=== PATIENT | female | born 1965 | race Caucasian/White ===

== ENCOUNTER 2016-12-12 20:05 | Emergency (ER) | payer OTHER ==
[2016-12-12] MEDS ORDERED: KETOROLAC TROMETHAMINE 60 MG/2 ML VIAL IM ONE (20:09)
[2016-12-12] MEDS ORDERED: ORPHENADRINE CITRATE 60 MG/2ML IM ONE (20:31)
[2016-12-12] MEDS ORDERED: ORPHENADRINE CITRATE 60 MG/2ML ONE (20:32)
[2016-12-12 20:45] VITALS: BP 147/89
--- NOTE | 2016-12-12 20:53 | ED Physician Documentation ---
Upper Extremity Problem - HISTORIAN Historian: patient - HPI Stated Complaint: right shoulder pain Chief Complaint: Upper Extremity Problem Location: R shoulder Onset: days ago Timing: worse Recent Injury: No Associated Symptoms: denies: fever, chills, sweating, shortness of breath, difficulty breathing, chest pain, chest discomfort, nausea, vomiting, neck pain , back pain, jaw pain, other Exacerbated By: nothing Relieved By: nothing Quality: pain, tenderness Further Comments: yes (51 year old female patient presents with complaints of right shoulder pain, states she cannot move her shouder. Reports 10 year history of right shoulder pain - treated with xray, naproxen and PT. Has never had MRI. States symptoms have become worse over past 3 days. Denies fall or injury. Cannot abduct shoulder.) - ROS CONST: no problems EYES/ENT: none CVS/RESP: none GI/: none MS/SKIN/LYMPH: joint pain (pain in all joints, started Vit D daily) - PAST HX Past History: diabetes Type 2, other (cardiac ablation, IBS, chronic right shoulder pain, meningioma) Surgeries/Procedures: cholecystectomy, hysterectomy Allergies/Adverse Reactions: Allergies Allergy/AdvReac Type Severity Reaction Status Date / Time tomato [Tomato] Allergy Verified 12/12/16 20:38 midazolam HCl [From Versed] AdvReac Pt. states Verified 12/12/16 20:38 she will wake during the middle of the procedure Home Medications: Ambulatory Orders Medication Instructions Recorded Baclofen [Liorasal] 10 mg PO TID PRN #30 tablet 12/12/16 Ketorolac Tromethamine [Toradol] 10 mg PO TID #15 tablet 12/12/16 - SOCIAL HX Smoking History: non-smoker Alcohol Use: none - FAMILY HX Family History: denies: none - VITAL SIGNS Vital Signs: Vital Signs Temp Pulse Resp BP Pulse Ox 98.2 F 109 H 18 147/89 98 12/12/16 20:08 12/12/16 20:08 12/12/16 20:08 12/12/16 20:08 12/12/16 20:08 - REVIEWED ASSESSMENTS Nursing Assessment Reviewed: Yes Vitals Reviewed: Yes Progress - Progress Progress: Patient states she does not want xray, "I have had them, it doesn't help." Patient states she has an appointment with Jes[facility]s at [facility] tomorrow. Now c/ o pain in all joints, which has improved after starting Vitamin D. Recommended patient discuss with PCP ED Results Lab/Radiology - Orders Orders: ED Orders Category Date Time Status Sling to Affected Extremity 1T Care 12/12/16 21:01 Ordered SHOULDER 2 VIEWS OR MORE [RAD] Stat Exams 12/12/16 Stop Req Ketorolac Tromethamine [Toradol] Med 12/12/16 20:09 Discontinued 60 mg IM NOW ONE Orphenadrine Citrate [Norflex] Med 12/12/16 20:32 Discontinued 60 mg .ROUTE .STK-MED ONE Orphenadrine Citrate [Norflex] Med 12/12/16 20:31 Discontinued 60 mg IM NOW ONE Upper Extremity Problem - EXAM General Appearance: mild distress Skin: normal color, warm/dry, NR, INT, PAL, DR Shoulder Exam: normal inspection, no evidence of injury, limited ROM (right - unable to abduct; c/o severe pain with any ROM), pain (Right) Elbow/Forearm Exam: normal inspection, non-tender, no evidence of injury, normal ROM Wrist Exam: normal inspection, non-tender, no evidence of injury, normal ROM Hand Exam: normal inspection, non-tender, no evidence of injury, normal ROM EENT: eye inspection normal, HAILE CVS: reg rate & rhythm, heart sounds normal, equal pulses, no murmur, no gallop , PMI nml, no JVD, no friction rub, 24 Vascular: no vascular compromise Peripheral: sensation nml, motor nml Central: oriented X3, CN's nml as tested, motor nml, sensation nml, mood/affect nml Respiratory: no resp. distress, breath sounds nml Abdomen: non-tender, no organomegaly, nml bowel sounds, no distention Discharge Clincal Impression: Internal impingement of right shoulder Clincal Impression: (Ruled Out): Internal derangement of right shoulder Prescriptions: Baclofen [Liorasal] 10 mg PO TID PRN #30 tablet PRN Reason: Spasms Ketorolac Tromethamine [Toradol] 10 mg PO TID #15 tablet Additional Instructions: Make an appointment to see your primary care doctor - you need MRI of right shoulder/c-spine and work up for Rheumatoid arthritis. passport support manager your prescriptions and start them tomorrow. No naproxen Use a sling for comfort. Home Medications: Ambulatory Orders Baclofen [Liorasal] 10 mg PO TID PRN #30 tablet 12/12/16 Ketorolac Tromethamine [Toradol] 10 mg PO TID #15 tablet 12/12/16 Condition: Stable Disposition: 01 HOME, SELF-CARE Decision to Admit: NO Decision Time: 20:53
== END 2016-12-12 21:09 | disposition home or self-care (01) ==
LOC: ED 20:05
DX: M25.811 Other specified joint disorders, right shoulder (principal)
CPT/HCPCS: J1885; J2360; 96372; 99283

== ENCOUNTER 2017-07-14 04:26 | Emergency (ER) | payer OTHER ==
--- NOTE | 2017-07-14 04:43 | ED Physician Documentation ---
General Adult - HISTORIAN Historian: patient - HPI Chief Complaint: General Adult Further Comments: yes (52 year old female patient presents with complaint of dizziness; got out of bed 1 hour ago, "was so dizzy I had to crawl on the floor ". Patient c/o "my whole body was heavy". Patient denies dizziness or pain on arrival.) - ROS CONST: recent illness (rotator cuff repair) EYES/ENT: none CVS/RESP: none GI/: none MS/SKIN/LYMPH: joint pain NEURO/PSYCH: headache, difficulty walking (related to dizziness) - PAST HX Past History: other (cardiac ablation, IBS, meningioma) Surgeries/Procedures: cholecystectomy, hysterectomy - SOCIAL HX Smoking History: non-smoker - FAMILY HX Family History: No - VITAL SIGNS Vital Signs: Vital Signs Temp Pulse Resp BP Pulse Ox 147/89 12/12/16 21:11 - REVIEWED ASSESSMENTS Nursing Assessment Reviewed: Yes Vitals Reviewed: Yes <LORNA CASTRO - Last Filed: 07/14/17 06:27> - VITAL SIGNS Vital Signs: Vital Signs Temp Pulse Resp BP Pulse Ox 98.2 F 105 H 16 127/67 99 07/14/17 05:49 07/14/17 05:49 07/14/17 05:49 07/14/17 05:49 07/14/17 05:49 <Oswaldo Jimenez - Last Filed: 07/14/17 08:24> - PAST HX Allergies/Adverse Reactions: Allergies Allergy/AdvReac Type Severity Reaction Status Date / Time tomato [Tomato] Allergy Verified 07/14/17 05:52 midazolam HCl [From Versed] AdvReac Pt. states Verified 07/14/17 05:52 she will wake during the middle of the procedure Home Medications: Ambulatory Orders Medication Instructions Recorded Baclofen [Liorasal] 10 mg PO TID PRN #30 tablet 12/12/16 Ketorolac Tromethamine [Toradol] 10 mg PO TID #15 tablet 12/12/16 Biotin/Keratin [Biotin Plus 1 each PO D 07/14/17 Keratin Tablet] Cholecalciferol [Vitamin D-3] 1,000 unit PO DAILY 07/14/17 Meclizine HCl 25 mg PO TID #20 tablet 07/14/17 Progress - Progress Progress: 0610 Patient continues to c/o dizziness if she turns to the left. Assistance x2 nurses to get to bathroom. <LORNA CASTRO - Last Filed: 07/14/17 06:27> - Results/Orders Results/Orders: Rx Meclizine 25 mg. Take one as needed up to 3 times daily for dizziness. - Progress Progress: Zofran 4 mg IV NS 1 L IVF Meclizine 25 mg Ativan 1 mg IV improved Rx Meclizine 25 mg po tid prn #20. Petar handout given - EKG/XRAY/CT EKG: NSR (HR=98; normal MI interval; normal axis.) <Oswaldo Jimenez - Last Filed: 07/14/17 08:24> ED Results Lab/Radiology - Radiology Radiology Impressions: Computed tomography head without contrast History: Dizzy and left-sided weakness Findings: Transverse brain sections are obtained without contrast revealing normal-sized ventricles and sulci. Johnson white differentiation is intact. Incidental falcine ossification is present. There is no intracranial hemorrhage , mass effect, fluid collection, skull lesion. Visualized sinuses and mastoid air cells are clear. Impression: Normal. Electronically signed on Jul 14, 2017 5:33:09 AM CDT by: Mele San - Orders Orders: ED Orders Category Date Time Status CBC/PLATELET/DIFF Stat Lab 07/14/17 04:37 Ordered CMP Stat Lab 07/14/17 04:37 Ordered UA W/MICRO IF INDICATED Stat Lab 07/14/17 04:37 Ordered <LORNA CASTRO - Last Filed: 07/14/17 06:27> - Lab Results Lab Results: Lab Results 07/14/17 07/14/17 07/14/17 06:29 04:50 04:50 WBC 6.70 K/ul K/ul (4.00-12.00) RBC 4.57 M/ul M/ul (3.90-5.20) Hgb 14.6 g/dL g/dL (12.0-16.0) Hct 42.6 % % (34.5-46.5) MCV 93.1 fl fl (80.0-100.0) MCH 32.0 pg pg (28.0-34.0) MCHC 34.4 g/dL g/dL (30.0-36.0) RDW 12.3 % % (11.3-14.3) Plt Count 217 K/mm3 K/mm3 (130-400) Neut % (Auto) 45.2 % % (39.0-79.0) Lymph % (Auto) 44.4 % % (16.0-50.0) [place] % (Auto) 4.5 % % (0.0-11.0) Eos % (Auto) 3.3 % % (0.0-6.8) Baso % (Auto) 0.4 (0.0-1.5) Neut # (Auto) 3.0 # k/uL # k/uL (1.4-7.7) Lymph # (Auto) 3.0 # k/uL # k/uL (0.6-4.0) [place] # (Auto) 0.3 # k/uL # k/uL (0.0-0.9) Eos # (Auto) 0.2 # k/uL # k/uL (0.0-0.6) Baso # (Auto) 0.0 # k/uL # k/uL (0.0-0.5) Reactive Lymphs % 2.1 % % (0.0-5.0) Reactive Lymphs # 0.1 # k/uL # k/uL (0.0-0.8) Sodium 139 mmol/L mmol/L (136-145) Potassium 4.0 mmol/L mmol/L (3.5-5.1) Chloride 102 mmol/L mmol/L (98-107) Carbon Dioxide 23 mmol/L mmol/L (22-30) BUN 7 mg/dL mg/dL (7-17) Creatinine 0.60 mg/dL mg/dL (0.52-1.04) Est GFR ( Amer) > 60 (60 - ) Est GFR (Non-Af Amer) > 60 (60 - ) Glucose 167 mg/dL H mg/dL (74-106) Calcium 9.2 mg/dL mg/dL (8.4-10.2) Total Bilirubin 0.7 mg/dL mg/dL (0.2-1.3) AST 22 U/L U/L (15-46) ALT 35 U/L U/L (13-69) Alkaline Phosphatase 126 U/L U/L (38-126) Total Protein 7.0 g/dL g/dL (6.3-8.2) Albumin 4.3 g/dL g/dL (3.5-5.0) Opiates Screen Negative ng/mL ng/mL (<300) Oxycodone Screen Negative ng/mL ng/mL (<100) Methadone Screen Negative ng/mL ng/mL (<200) Ur Barbiturates Screen Negative ng.mL ng.mL (<200) Tricyclic Antidepress Negative ng/mL ng/mL (<300) Phencyclidine Screen Negative ng/mL ng/mL (< 25) Amphetamines Screen Negative ng/mL ng/mL (<500) U Methamphetamines Scrn Negative ng/mL ng/mL (<500) MDMA Negative ng/mL ng/mL (<500) Benzodiazepines Screen Negative ng/mL ng/mL (<150) Urine Cocaine Screen Negative ng/mL ng/mL (<150) U Cannabinoids Screen Negative ng/mL ng/mL (< 50) - Orders Orders: ED Orders Category Date Time Status Place IV Lock 1T Care 07/14/17 04:[address] BRAIN W/O CONTRAST Stat Exams 07/14/17 Completed CBC/PLATELET/DIFF Stat Lab 07/14/17 04:50 Completed CMP Stat Lab 07/14/17 04:50 Completed UA W/MICRO IF INDICATED Stat Lab 07/14/17 06:15 Received Urine drug screen [DRUG SCREEN URINE MEDICAL ONLY] Stat Lab 07/14/17 06:29 Completed 0.9 % Sodium Chloride [Normal Saline] 1,000 ml Med 07/14/17 04:46 Discontinued IV NOW LORazepam [Ativan] Med 07/14/17 07:29 Once 1 mg IVP NOW ONE Meclizine HCl [Antivert] Med 07/14/17 06:05 Discontinued 25 mg PO NOW ONE Ondansetron HCl/Pf [Zofran 4 mg/2 ml] Med 07/14/17 06:05 Discontinued 4 mg IVP NOW ONE EKG WITH COMPARISON Stat Ther 07/14/17 Ordered <Oswaldo Jimenez Last Filed: 07/14/17 08:24> General Adult Physical Exam - PHYSICAL EXAM GENERAL APPEARANCE: moderate distress EENT: eye inspection normal, ENT inspection normal, pharynx normal, no signs of dehydration, HAILE, no nystagmus, TM's nml RESPIRATORY: no resp distress, chest non-tender, breath sounds normal CVS: reg rate & rhythm, heart sounds normal, equal pulses, no murmur, no gallop , PMI nml, no JVD, no friction rub, 24 ABDOMEN: soft, no organomegaly, normal bowel sounds, no abdominal bruit, no distension BACK: normal inspection, no CVA tenderness SKIN: normal color, warm/dry, NR, INT, PAL, DR EXTREMITIES: non-tender, normal range of motion, no evidence of injury, no edema , J, [employer] NEURO: oriented X3, CN's nml as tested, motor nml, sensation nml, mood/affect nml <LORNA CASTRO - Last Filed: 07/14/17 06:27> Discharge <LORNA CASTRO - Last Filed: 07/14/17 06:27> Decision to Admit: NO Decision Time: 08:24 <Oswaldo Jimenez - Last Filed: 07/14/17 08:24> Clincal Impression: Vertigo Prescriptions: Meclizine HCl 25 mg PO TID #20 tablet Referrals: Evelyn Leavitt MD [Primary Care Provider] - 2 Days Condition: Stable Disposition: 01 HOME, SELF-CARE
[2017-07-14] MEDS: 0.9 % SODIUM CHLORIDE 1,000 ML IV ONE (04:53)
[2017-07-14 04:55] LABS: BASOPHILS % 0.4 (0.0-1.5); EOSINOPHILS % 3.3 % (0.0-6.8); MEAN CORPUSCULAR VOLUME 93.1 fl (80.0-100.0); MONOCYTES % 4.5 % (0.0-11.0)
[2017-07-14 05:09] LABS: eGFR (African) > 60; eGFR (Non-African) > 60
--- NOTE | 2017-07-14 05:47 | Diagnostic Imaging Report ---
LORNA CASTRO (PERSONAL LINES UNDERWRITER) - ER [facility] [address] [address] [place], [place]. [address] Report Submission Date: Jul 14, 2017 5:33:09 AM CDT Patient Study Name: NICOLAS BISHOP Date: Jul 14, 2017 5:07:44 AM CDT Modality Type: CT\SR Gender: F Description: CT HEAD W/O : 67 Institution: [facility] Physician: LORNA CASTRO (DOYLE) - ER Computed tomography head without contrast History: Dizzy and left-sided weakness Findings: Transverse brain sections are obtained without contrast revealing normal-sized ventricles and sulci. Johnson white differentiation is intact. Incidental falcine ossification is present. There is no intracranial hemorrhage , mass effect, fluid collection, skull lesion. Visualized sinuses and mastoid air cells are clear. Impression: Normal. Electronically signed on Jul 14, 2017 5:33:09 AM CDT by: Mele BRANNON
[2017-07-14] MEDS: MECLIZINE HCL 25 MG TABLET PO ONE (06:06)
[2017-07-14] MEDS: ONDANSETRON HCL/PF 4 MG/ 2ML VIAL IVP ONE (06:18)
[2017-07-14 06:39] LABS: CANNABINOIDS NEGATIVE ng/mL (< 50); METHYLENEDIOXYMETHAMPHETAMINE NEGATIVE ng/mL (<500)
[2017-07-14] MEDS: LORazepam 2 MG/ML VIAL IVP ONE (07:40)
[2017-07-14 08:48] VITALS: BP 120/74
== END 2017-07-14 08:15 | disposition home or self-care (01) ==
LOC: ED 04:26
DX: R42 Dizziness and giddiness (principal)
CPT/HCPCS: 70450; 80053; 80377; 81002; 85025; 93005; J2060; J2405; J7030; 96365; 96366; 96375; 99283; G0481; S1016

== ENCOUNTER 2019-03-20 02:00 | Emergency (ER) | payer OTHER ==
--- NOTE | 2019-03-20 02:17 | ED Physician Documentation ---
General Adult - HISTORIAN Historian: patient - HPI Stated Complaint: High Blood Pressure Chief Complaint: General Adult Additional Information: 53 year old female states that presents with postural dizziness and high blood pressure. Patient states that she woke up and when she sat up she got dizzy; checked her blood pressure and it was extremely elevated so she came to the ER. Upon arrival patient appears very anxious; blood pressure elevated; patient very tense. Denies any CP, SOA, n/v/d. Onset: hours Timing: still present Severity: moderate Modifying Factors: anxiety - ROS CONST: no problems EYES/ENT: none CVS/RESP: none GI/: none MS/SKIN/LYMPH: none NEURO/PSYCH: dizziness. denies: headache, difficulty walking - PAST HX Past History: hypertension Other History: none Immunizations: UTD Allergies/Adverse Reactions: Allergies Allergy/AdvReac Type Severity Reaction Status Date / Time tomato [Tomato] Allergy Verified 03/20/19 02:14 midazolam HCl [From Versed] AdvReac Pt. states Verified 03/20/19 02:14 she will wake during the middle of the procedure Tomato Allergy Uncoded 03/20/19 02:14 midazolam HCl AdvReac Pt. states Uncoded 03/20/19 02:14 she will wake during the middle of the procedure Home Medications: Ambulatory Orders Medication Instructions Recorded Hydrochlorothiazide 25 mg PO AM 03/20/19 - SOCIAL HX Smoking History: non-smoker Alcohol Use: none Drug Use: none - FAMILY HX Family History: Yes (extensive cardiac history) - VITAL SIGNS Vital Signs: Vital Signs Temp Pulse Resp BP Pulse Ox 87 18 169/77 98 03/20/19 02:00 03/20/19 02:00 03/20/19 02:00 03/20/19 02:00 - REVIEWED ASSESSMENTS Nursing Assessment Reviewed: Yes Vitals Reviewed: Yes Progress - Results/Orders Results/Orders: 03:00 once patient was able to relax blood pressure WNL and patient is feeling better. Denies any dizziness. ED Results Lab/Radiology - Orders Orders: ED Orders Category Date Time Status Orthostatics 1T Care 03/20/19 02:16 Ordered CBC/PLATELET/DIFF Routine Lab 03/20/19 Ordered CMP [CMP] Routine Lab 03/20/19 Ordered EKG WITH COMPARISON Stat Ther 03/20/19 Ordered General Adult Physical Exam - PHYSICAL EXAM GENERAL APPEARANCE: mild distress (anxiety) EENT: eye inspection normal, ENT inspection normal, pharynx normal, no signs of dehydration, HAILE, no nystagmus NECK: normal inspection, supple RESPIRATORY: breath sounds normal CVS: heart sounds normal, equal pulses ABDOMEN: soft, normal bowel sounds SKIN: warm/dry, normal color EXTREMITIES: normal range of motion NEURO: oriented X3, CN's nml as tested, motor nml, sensation nml, cognition normal Discharge Clincal Impression: Hypertension, Anxiety Referrals: Evelyn Leavitt MD [Primary Care Provider] - 2 Days Additional Instructions: Episode of high blood pressure may have been related to anxiety; once relaxed blood pressure normalized Follow up with PCP in regards to blood glucose of 193 Increase water intake Continue taking blood pressure medication Follow up with PCP next week Condition: Stable Disposition: 01 HOME, SELF-CARE Decision to Admit: NO Decision Time: 06:55
[2019-03-20] MEDS: LISINOPRIL 5 MG TABLET PO ONE (03:26)
[2019-03-20 03:32] VITALS: BP 110/58
[2019-03-20 06:57] LABS: BASOPHILS % 0.7 % (0.0-1.5); NEUTROPHILS # 2.5 # k/uL (1.4-7.7)
[2019-03-20 06:58] LABS: eGFR (Non-African) > 60
== END 2019-03-20 03:12 | disposition home or self-care (01) ==
LOC: ED 02:00
DX: I10 Essential (primary) hypertension (principal); F41.9 Anxiety disorder, unspecified
CPT/HCPCS: 80053; 84484; 85025; 93005; 99282